=== PATIENT | male | born 1975 | race Hispanic/Latino ===

== ENCOUNTER 2025-04-01 16:56 | Emergency (ER) | payer SELFPAY ==
[~2025-04-01] VITALS: Ht 162.6 cm; Wt 86.2 kg
--- NOTE | 2025-04-01 17:09 | ERN ---
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 present. Capillary refill less than 2 seconds. No deficits postprocedure. Good color, warmth, movement, and sensation. Complications: None Disposition: The elbow was placed in a posterior splint at 90 of flexion as well as sugar tong. Sling in place. DX & DISP Disposition: Discharge Departure Impression: Primary Impression: Dislocation of elbow, left, closed Additional Impression: Abrasions of multiple sites Condition: Stable Scripts Cyclobenzaprine HCl (Flexeril) 10 Mg Tab 10 MG PO [id number], #8 TAB 0 Refills Prov: DAPHNE SEWELL NP 04/01/25 Ibuprofen (Ibuprofen) 600 Mg Tablet 600 MG PO Q6H PRN for PAIN, #15 TAB 0 Refills Prov: DAPHNE SEWELL NP 04/01/25 Additional Instructions: Rest. Ice. Elevation/sling. Monitor distal circulation (left fingers): Capillary refill, movement, sensation, color. May take [id number] Tylenol or ibuprofen every 6-8 hours as needed for discomfort. May take Flexeril every 12 hours as needed for discomfort/muscle spasms. You will need to follow up with orthopedic surgeon, Dr. Greta Warren. Referrals: GRETA WARREN MD Time of Disposition: 21:46 I performed a substantive portion of the visit. I have reviewed and personally made and approve the management plan that is documented in the notes by myself with LAURA/resident. I acknowledged full responsibility for the patient's management plan. DAPHNE SEWELL NP April 01, 2025 17:09 ROSI RODRIGUEZ DO April 02, 2025 03:08
--- NOTE | 2025-04-01 17:17 | NUR ---
PT JUST NOW BEING PLACED IN ED BED 1. EXTRA POLES/LINES HAVE BEEN REMOVED FROM ROOM. [facility] OFF[facility]ER WILL BE W/PT WHO HAS WRIST RESTRAINTS ALONG W/[employer]IE [employer] WORK[employer] WHO WILL DO 1:1 SITTING. PT IS NON SUICIDAL BUT ACCUSED OF ATTEMPTED HOMOCIDE
[2025-04-01 17:23] LABS: BASOPHILS # (AUTO) 0.04 K/uL (0.00-0.20); BASOPHILS % (AUTO) 0.2 % (0.0-5.0); EOSINOPHILS # (AUTO) 0.03 K/uL (0.00-0.70); EOSINOPHILS % (AUTO) 0.1 % (0.0-8.0); HEMATOCRIT 43.9 % (42-54); IMMATURE GRANULOCYTE ABSOLUTE 0.17 K/uL (0-1); LYMPHOCYTES % (AUTO) 4.6 % (21.0-51.0); MEAN CORPUSCULAR HEMOGLOBIN 30.3 pg (27.0-33.0); MEAN CORPUSCULAR HGB CONC 34.4 g/dL (32.0-36.0); MEAN CORPUSCULAR VOLUME 88.2 fL (79-99); MONOCYTES # (AUTO) 1.3 K/uL (0.1-1.0); MONOCYTES % (AUTO) 5.7 % (3.0-13.0); NEUTROPHILS # (AUTO) 19.6 K/uL (1.8-7.7); NEUTROPHILS % (AUTO) 88.6 % (40.0-77.0); PLATELET COUNT (AUTO) 284 K/uL (130-400); RED BLOOD CELL COUNT(AUTO) 4.98 MIL/uL (4.50-6.20); RED CELL DISTRIBUTION WIDTH 12.5 % (11.0-15.5); WHITE BLOOD COUNT (AUTO) 22.2 K/uL (4.8-10.8)
[2025-04-01 17:32] LABS: CARBON DIOXIDE 22 mmol/L (21-32); CHLORIDE 104 mmol/L (101-111); CREATININE 1.4 mg/dL (0.5-1.3); GLOMERULAR FILTR. RATE CALC 62 mL/min (>90); GLUCOSE,RANDOM 159 mg/dL (70-105); POTASSIUM 3.9 mmol/L (3.5-5.1); SODIUM SERUM 140 mmol/L (136-145); UREA NITROGEN, BLOOD 22 mg/dL (7-18)
[2025-04-01 17:47] LABS: ALANINE AMINOTRANSFERASE 60 U/L (12-78); ALBUMIN 3.9 g/dL (3.5-5.0); ASPARTATE AMINOTRANSFERASE 45 U/L (10-37); BILIRUBIN,DIRECT 0.1 mg/dL (0.0-0.3); BILIRUBIN,TOTAL 0.5 mg/dL (0.2-1.0); TOTAL PROTEIN, SERUM 7.5 g/dL (6.0-8.3)
[2025-04-01 17:53] LABS: ALCOHOL, BLOOD < 3 mg/dL (0-10)
[2025-04-01 18:05] LABS: INR 1.01 (0.85-1.15); PROTHROMBIN TIME 10.7 SEC (9.6-11.6)
[2025-04-01 18:07] LABS: PARTIAL THROMBOPLASTIN TIME 21.7 SEC (26.3-35.5)
[2025-04-01] MEDS: 0.9%NACL 1000ML 1,000 ML IV ONE ×2 (18:15→20:20)
[2025-04-01] MEDS: ondanSETRON 4MG INJ IVP ONE (18:15)
--- NOTE | 2025-04-01 18:15 | HMCIMG ---
FOREARM 2VWS LT HISTORY: Trauma COMPARISON: None TECHNIQUE: 2 images of the left forearm were obtained. FINDINGS: There appears to be left elbow dislocation. No acute displaced fracture is seen. Degenerative changes are seen. IMPRESSION: 1. Findings as described above.
[2025-04-01] MEDS: hydroMORPHone 0.5 MG SYG (0.5MG/0.5ML) IVP ONE (18:16)
[2025-04-01] MEDS: teTANUS/diphthERIA TOXOID [ADULT] 0.5 ML VIAL IM ONE (18:17)
--- NOTE | 2025-04-01 18:17 | HMCIMG ---
HUMERUS 2+VWS LT HISTORY: Trauma COMPARISON: None TECHNIQUE: 2 images of the left humerus were obtained. FINDINGS: No acute displaced fracture is seen. There appears to be left elbow dislocation Degenerative changes are seen. IMPRESSION: 1. Findings as described above.
--- NOTE | 2025-04-01 18:18 | HMCIMG ---
SHOULDER COMP 2+VWS LT HISTORY: Trauma COMPARISON: None TECHNIQUE: 2 images of the left shoulder were obtained. FINDINGS: There is no acute displaced fracture or dislocation. Mild degenerative changes are seen. IMPRESSION: 1. Findings as described above.
--- NOTE | 2025-04-01 18:45 | EKG ---
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
[2025-04-01] MEDS ORDERED: IOHEXOL 350 MG/ML 100ML INFUS..BTL IV ONE (18:47)
--- NOTE | 2025-04-01 19:38 | HMCIMG ---
CT HEAD/BRAIN W/O CONTRAST HISTORY: Trauma COMPARISON: None TECHNIQUE: Multiple sequential axial images of the head were obtained from the base of the skull through vertex. Patient was not given contrast through intravenous route. FINDINGS: The ventricles and extraventricular CSF spaces are nondilated for patient's age. There is no midline shift, mass effect or herniation. No acute intracranial bleed is seen. Visualized portion of the paranasal sinuses are grossly within normal limits. IMPRESSION: 1. No acute intracranial bleed is seen. CT was performed with one or more following dose reduction techniques: automated exposure control, adjustment of the mA and kv according to patient's size, or use of a iterative reconstruction technique.
--- NOTE | 2025-04-01 19:42 | HMCIMG ---
CT CERVICAL SPINE W/O CONTRAST HISTORY: Abnormal COMPARISON: None TECHNIQUE: Multiple sequential axial images of the cervical spine were obtained including post processing sagittal and coronal reconstruction images. Patient was not given contrast through intravenous route. FINDINGS: There is straightening of normal lordotic cervical curvature which may be related to muscle spasm or positioning. There is no loss of vertebral height. Evaluation for disc and cord pathology is limited with CT study. No evidence of fracture or dislocation is seen. There are mild degenerative changes in cervical spine spondylosis in the mid and lower cervical spine. IMPRESSION: 1. No fracture is seen. CT was performed with one or more following dose reduction techniques: automated exposure control, adjustment of the mA and kv according to patient's size, or use of a iterative reconstruction technique.
--- NOTE | 2025-04-01 19:43 | HMCIMG ---
CT CHEST/ABD/PELV W/CONRAST HISTORY: Trauma COMPARISON: None TECHNIQUE: Multiple sequential axial images of the chest were obtained from the thoracic inlet through upper abdomen. Patient was not given contrast through intravenous route. FINDINGS: There is no evidence of pulmonary nodule or parenchymal disease. No pleural effusion or pericardial effusion is seen. There is no evidence of pneumothorax. There are normal size mediastinal and hilar lymph nodes. The heart is not enlarged. Degenerative changes of the thoracolumbar spine are present. There is no evidence of adrenal nodule. IMPRESSION: 1. No evidence of pulmonary nodule or effusion is seen. CT CHEST/ABD/PELV W/CONRAST HISTORY: Trauma COMPARISON: None TECHNIQUE: Multiple sequential axial images of the abdomen and pelvis were obtained from the dome of the diaphragm through symphysis pubis. Patient was not given contrast through intravenous route. Oral contrast was not given. FINDINGS: The liver, spleen, adrenal glands and pancreas are unremarkable. There is no evidence of hydronephrosis bilaterally. No evidence of renal stone is seen. Fecal material is seen in the colon. There are normal size retroperitoneal and mesenteric lymph nodes. No ascites is seen. No CT evidence of acute sinusitis. Pelvic sidewalls are symmetric bilaterally. Bladder is well distended without wall thickening. IMPRESSION: 1. No acute findings. CT was performed with one or more following dose reduction techniques: automated exposure control, adjustment of the mA and kv according to patient's size, or use of a iterative reconstruction technique.
--- NOTE | 2025-04-01 19:46 | HMCIMG ---
ELBOW 2VWS LT HISTORY: Trauma COMPARISON: None TECHNIQUE: 2 images of the left elbow were obtained. FINDINGS: There is left elbow dislocation. Soft tissue swelling is seen. Degenerative changes are seen. IMPRESSION: 1. Findings as described above.
[2025-04-01 20:26] LABS: ADD UA MICROSCOPIC YES; APPEARANCE,URINE CLEAR (CLEAR); BILIRUBIN,URINE NEGATIVE (NEGATIVE); COLOR,URINE YELLOW (YELLOW); GLUCOSE, URINE (UA) NEGATIVE (NEGATIVE); KETONES,URINE NEGATIVE (NEGATIVE); LEUKOCYTE ESTERASE ,URINE NEGATIVE Leu/uL (NEGATIVE); NITRATE,URINE NEGATIVE (NEGATIVE); OCCULT BLOOD,URINE NEGATIVE (NEGATIVE); PH,URINE 5.5 (5.0-8.0); PROTEIN,URINE 50 mg/dL (NEGATIVE); UROBILINOGEN,URINE 0.2 mg/dL (0.2-1.0)
[2025-04-01 20:28] LABS: BACTERIA,URINE RARE /HPF (None Seen); MUCUS,URINE RARE LPF (None Seen); OTHER CASTS, URINE 1 /LPF (None Seen); SQUAMOUS EPITHELIAL CELL,UR RARE /HPF (0-2); UNCLASSIFIED CRYSTAL 2 /HPF (None Seen)
[2025-04-01 20:31] LABS: AMPHET/METH SCREEN,URINE NEGATIVE (NEGATIVE); BARBITURATE SCREEN, URINE NEGATIVE (NEGATIVE); BENZODIAZEPINES SCREEN,URINE NEGATIVE (NEGATIVE); CANNABINOID SCREEN,URINE NEGATIVE (NEGATIVE); COCAINE SCREEN,URINE NEGATIVE (NEGATIVE); OPIATE SCREEN,URINE NEGATIVE (NEGATIVE); PHENCYCLIDINE SCREEN,URINE NEGATIVE (NEGATIVE)
[2025-04-01] MEDS: FENTanyl CITRate PF 50 MCG/1 ML 2ML VIAL IVP ONE (21:06)
[2025-04-01] MEDS: proPOFol 10 MG/ML 20ML VIAL IV ONE (21:12)
--- NOTE | 2025-04-01 21:33 | NUR ---
POSTERIO SPLINT APPLIED TO LEFT ARM. ARM PLACED IN SLING. PT IS BACK TO BASELINE AT THIS TIME
[2025-04-01] MEDS ORDERED: CYCL10TA16 PO (21:34)
[2025-04-01] MEDS ORDERED: IBUP-2070 PO (21:34)
--- NOTE | 2025-04-01 21:59 | HMCIMG ---
ELBOW 2VWS LT CLINICAL HISTORY: REDUCTION COMPARISON: 04/01/2025 TECHNIQUE: AP and lateral images were obtained. FINDINGS: No obvious fracture or dislocation. No joint effusion. The soft tissues appear edematous. No radiopaque foreign bodies. IMPRESSION: Interval reduction of previously identified elbow dislocation soft tissue edema but no identified bony sequela
--- NOTE | 2025-04-01 23:50 | HMCIMG ---
CT UPPER EXT W/O CONTRAST HISTORY: MH tip of the coronoid process COMPARISON: None TECHNIQUE: Multiple sequential axial images of the left elbow were obtained including post processing sagittal and coronal reconstruction images. Patient was not given contrast through intravenous route. FINDINGS: Extensive soft tissue swelling is seen. There is dislocation of the left elbow. There is radial head dislocation. The coronoid process and olecranon process are visualized and appears to be intact both is located. IMPRESSION: 1. Left elbow dislocation and radial head dislocation. CT was performed with one or more following dose reduction techniques: automated exposure control, adjustment of the mA and kv according to patient's size, or use of a iterative reconstruction technique.
[2025-04-02] MEDS: FENTanyl CITRate PF 50 MCG/1 ML 2ML VIAL IVP ONE (01:16)
[2025-04-02] MEDS: proPOFol 10 MG/ML 20ML VIAL IV ONE (01:18)
[2025-04-02 02:25] VITALS: BP 135/78; PULSE 85; RESP 16; TEMP 99; O2SAT 98
--- NOTE | 2025-04-02 07:47 | HMCIMG ---
ELBOW 2VWS LT HISTORY: Dislocation COMPARISON: 04/01/2005 TECHNIQUE: 2 images of the left elbow were obtained status post reduction. FINDINGS: Alignment appears to have markedly improved. A cast is seen overlying the bony structure obscuring bony detail. There is no acute displaced fracture or dislocation. Degenerative changes are seen. IMPRESSION: 1. Findings as described above.
--- NOTE | 2025-04-02 07:53 | HMCIMG ---
ELBOW 2VWS LT HISTORY: Post reduction COMPARISON: 04/01/2005 TECHNIQUE: 2 images of the left elbow were obtained. FINDINGS: A cast is seen overlying the patient bony structure limiting evaluation. Patient is status post reduction. Alignment has improved. Degenerative changes are seen. IMPRESSION: 1. Findings as described above.
== END 2025-04-02 02:25 ==
LOC: EEVIPCON 16:56 → EDH 16:56
DX: S53.105A Unspecified dislocation of left ulnohumeral joint, initial encounter (principal); S00.81XA Abrasion of other part of head, initial encounter; S20.319A Abrasion of unspecified front wall of thorax, initial encounter; S30.811A Abrasion of abdominal wall, initial encounter; S40.211A Abrasion of right shoulder, initial encounter; M25.512 Pain in left shoulder; I10 Essential (primary) hypertension; Y04.2XXA Assault by strike against or bumped into by another person, initial encounter; Y93.89 Activity, other specified; Y92.69 Other specified industrial and construction area as the place of occurrence of the external cause; Y99.8 Other external cause status
CPT/HCPCS: 99285; 70450; 24600; 96374; 96361; 96375; 80076; 84484; 80048; 80305; 85025; 85610; 85730; 86850; 86900; 86901; 36415; 90714; 73070 ×4; 73090; 73060; 73030; 72125; 71260; 73200; 74177; 90471; 93005; 81001; J3010 ×2; J7030 ×2; J2704 ×2; J2405; J1171; Q9967; 96372; J3490